=== PATIENT | male | born 1995 | race Caucasian/White ===

== ENCOUNTER 2017-07-09 21:57 | Emergency (ER) | payer OTHER ==
[~2017-07-09] VITALS: Ht 182.9 cm; Wt 91.4 kg
[~2017-07-09 21:57] MED LIST: LORTAB 5-325 M1 EACH PO; NAPROSYN500 MG PO; NO DOZ200 MG PO
[2017-07-09] MEDS ORDERED: KENALOG,ARISTOC80 G1 TP (22:36)
[2017-07-09] MEDS ORDERED: ATARAX,VISTARIL25 MG PO (22:36)
[2017-07-09] MEDS ORDERED: PREDNISONE20 MG PO (22:36)
[2017-07-09 22:52] VITALS: BP 133/75
== END 2017-07-09 22:56 | disposition home or self-care (01) ==
LOC: EME 21:57
DX: L23.7 Allergic contact dermatitis due to plants, except food (principal)
CPT/HCPCS: 99281; 99284; J1100; Q0177

== ENCOUNTER 2018-01-25 15:34 | Emergency (ER) | payer OTHER ==
[~2018-01-25] VITALS: Ht 185.4 cm; Wt 92.8 kg
[~2018-01-25 15:34] MED LIST changes: +ATARAX,VISTARIL25 MG PO; +KENALOG,ARISTOC80 G1 TP; +PREDNISONE20 MG PO
[2018-01-25] MEDS ORDERED: AUGMENTIN875 MG PO (16:50)
[2018-01-25 17:10] VITALS: BP 152/70
== END 2018-01-25 17:56 | disposition home or self-care (01) ==
LOC: EME 15:34
DX: R59.0 Localized enlarged lymph nodes (principal)
CPT/HCPCS: 99281; 99283